=== PATIENT | male | born 1950 | race Caucasian/White ===

== ENCOUNTER 2020-04-07 16:47 | Emergency (ER) | payer MEDICARE, OTHER ==
[~2020-04-07] VITALS: Ht 185.4 cm; Wt 136.4 kg
[2020-04-07 17:25] VITALS: BP 138/74
--- NOTE | 2020-04-07 17:45 | PHYS DOC ---
Past Medical History Past Medical History: Unknown Past Surgical History: Other Smoking Status: Heavy Tobacco Smoker Alcohol Use: None General Adult EDM: Chief Complaint: CONSTIPATION HPI: HPI: Patient is a 69 year old male with a history of chronic constipation who presents the ED today complaining of constipation for 2 weeks. Patient denies any nausea or vomiting. He states he normally comes to the emergency room and they do an enema which relieves his symptoms. He states he is not able to do his own enema at home because he cannot reach his right rectum. Review of Systems: Review of Systems: Constitutional: Denies fever or chills. [] Eyes: Denies change in visual acuity. [] HENT: Denies nasal congestion or sore throat. [] Respiratory: Denies cough or shortness of breath. [] Cardiovascular: Denies chest pain or edema. [] GI: Reports constipation. Denies abdominal pain, nausea, vomiting, bloody stools or diarrhea. [] : Denies dysuria. [] Musculoskeletal: Denies back pain or joint pain. [] Integument: Denies rash. [] Neurologic: Denies headache, focal weakness or sensory changes. [] ] Psychiatric: Denies depression or anxiety. [] Heart Score: Risk Factors: Risk Factors: DM, Current or recent (<one month) smoker, HTN, HLP, family history of CAD, obesity. Risk Scores: Score 0 - 3: 2.5% MACE over next 6 weeks - Discharge Home Score 4 - 6: 20.3% MACE over next 6 weeks - Admit for Clinical Observation Score 7 - 10: 72.7% MACE over next 6 weeks - Early Invasive Strategies Allergies: Allergies: Allergies Coded Allergies Type Severity Reaction Last Updated Verified Penicillins Allergy Unknown 04/07/20 Yes egg Allergy Unknown 04/07/20 Yes lansoprazole Allergy Unknown 04/07/20 Yes tuberculin,PPD,multi-puncture Allergy Unknown 04/07/20 Yes Physical Exam: PE: Constitutional: Well developed, well nourished, no acute distress, non-toxic appearance. [] HENT: Normocephalic, atraumatic, bilateral external ears normal, oropharynx moist, no oral exudates, nose normal. [] Eyes: PERRLA, EOMI, conjunctiva normal, no discharge. [] Neck: Normal range of motion, no tenderness, supple, no stridor. [] Cardiovascular:Heart rate regular rhythm, no murmur [] Lungs & Thorax: Bilateral breath sounds clear to auscultation [] Abdomen: Bowel sounds normal, soft, no tenderness, no masses, no pulsatile masses. [] Skin: Warm, dry, no erythema, no rash. [] Back: No tenderness, no CVA tenderness. [] Extremities: No tenderness, no cyanosis, no clubbing, ROM intact, no edema. [] Neurologic: Alert and oriented X 3, normal motor function, normal sensory function, no focal deficits noted. [] Psychologic: Affect normal, judgement normal, mood normal. [] Current Patient Data: Vital Signs: Vital Signs Date Time Temp Pulse Resp B/P (MAP) Pulse Ox O2 Delivery O2 Flow Rate FiO2 04/07/20 17:25 99.3 20 138/74 (95) 97 Room Air 99.3 EKG: EKG: [] Radiology/Procedures: Radiology/Procedures: [] Course & Med Decision Making: Course & Med Decision Making Pertinent Labs and Imaging studies reviewed. (See chart for details) This is a 69-year-old male patient presenting to the ED today with chronic constipation. Is requesting an enema. Milk of molasses enema was performed successfully. Discharge to home. Provided return precautions. Dragon Disclaimer: Kiko Disclaimer: This electronic medical record was generated, in whole or in part, using a voice recognition dictation system. Departure Departure Impression: Primary Impression: Constipation Qualified Codes: K59.00 - Constipation, unspecified Disposition: HOME, SELF-CARE Condition: STABLE Referrals: TAPAN HIGUERA MD (PCP) follow up in 1-2 weeks Patient Instructions: Constipation, Adult Additional Instructions: You were seen for chronic constipation. Consider taking [id number] MiraLAX as well as a stool softener every day to prevent constipation. Consider taking mag citrate when you are constipated. Follow-up with your doctor in 1 to 2 weeks Justicifation of Admission Dx: Justifications for Admission: Justification of Admission Dx: N/A FARRUKH SANTOS APRN Apr 07, 2020 17:45
== END 2020-04-07 19:25 | disposition home or self-care (01) ==
LOC: ER 16:47
DX: K59.00 Constipation, unspecified (principal); Z72.0 Tobacco use; Z88.0 Allergy status to penicillin; Z91.012 Allergy to eggs; Z88.8 Allergy status to other drugs, medicaments and biological substances
CPT/HCPCS: 99284

== ENCOUNTER 2020-04-29 09:54 | Emergency (ER) | payer MEDICARE, OTHER ==
[~2020-04-29] VITALS: Ht 185.4 cm; Wt 136.0 kg
[2020-04-29 10:00] VITALS: BP 166/73
--- NOTE | 2020-04-29 10:56 | RAD ---
HUMERUS LEFT DATE: 04/29/2020 10:09 AM INDICATION: fall, pain COMPARISON: None. FINDINGS: Bones: There is no evidence of acute fracture or dislocation. Joints: The joint spaces are normal. Miscellaneous: None. IMPRESSION: No evidence of acute fracture. Electronically signed by: Reginaldo Modi MD (04/29/2020 10:53 AM) [id number]
[2020-04-29] MEDS ORDERED: CYCL10TA2 PO (11:33)
--- NOTE | 2020-04-29 11:33 | PHYS DOC ---
Past Medical History Past Medical History: Other Additional Past Medical Histor: "I take medication for pain" Past Surgical History: Appendectomy, Cholecystectomy, Tonsillectomy Smoking Status: Heavy Tobacco Smoker Alcohol Use: None General Adult EDM: Chief Complaint: UPPER EXTREMITY PAIN HPI: HPI: 69-year-old male past medical history of tobacco dependence, chronic knee pain and CAD with last stent placed in 2004, on no anticoagulants, presents the ED with complaints of left arm pain that occurred 3 weeks ago after patient fell. Patient states he was going down a ramp when he lost his balance and fell over his walker, did not hit his head or lose consciousness. Complains of sharp left distal arm pain that moves up to his left shoulder. Patient reported to triage he was weak but denies this on my exam and on nursing exam. C/o neck pain to the nurse but denies any neck pain on my exam. Patient reports he takes OxyContin 30 mg 5 times a day for his knee pain. Came to the ED because he thought his left arm pain would be resolved by now. No h/o underlying kidney disease. ROS: Denies associated headache, neck stiffness, midline neck pain, radiculopathy, sensorimotor deficits, neurologic deficits, saddle anesthesia, urine or bowel retention or incontinence, diaphoresis, sore throat, cough, hemoptysis, leg swelling, chest pain pressure or tightness, dyspnea, joint swelling or rash. Review of Systems: Review of Systems: Constitutional: Denies fever or chills. [] Eyes: Denies change in visual acuity. [] HENT: Denies nasal congestion or sore throat. [] Respiratory: Denies cough or shortness of breath. [] Cardiovascular: Denies chest pain or edema. [] GI: Denies abdominal pain, nausea, vomiting, bloody stools or diarrhea. [] : Denies dysuria. [] Musculoskeletal: Denies back pain or joint pain. [] Integument: Denies rash. [] Neurologic: Denies headache, focal weakness or sensory changes. [] Endocrine: Denies polyuria or polydipsia. [] Lymphatic: Denies swollen glands. [] Psychiatric: Denies depression or anxiety. [] Heart Score: Risk Factors: Risk Factors: DM, Current or recent (<one month) smoker, HTN, HLP, family history of CAD, obesity. Risk Scores: Score 0 - 3: 2.5% MACE over next 6 weeks - Discharge Home Score 4 - 6: 20.3% MACE over next 6 weeks - Admit for Clinical Observation Score 7 - 10: 72.7% MACE over next 6 weeks - Early Invasive Strategies Allergies: Allergies: Allergies Coded Allergies Type Severity Reaction Last Updated Verified Penicillins Allergy Unknown 04/07/20 Yes egg Allergy Unknown 04/07/20 Yes lansoprazole Allergy Unknown 04/07/20 Yes tuberculin,PPD,multi-puncture Allergy Unknown 04/07/20 Yes Physical Exam: PE: Constitutional: Well developed, well nourished, no acute distress, non-toxic appearance. [] obese/rich skin HENT: Normocephalic, atraumatic, no signs of head trauma Eyes: EOMI, conjunctiva normal, no discharge. [] Neck: Normal range of motion, no tenderness, supple, no stridor. [] Cardiovascular:Heart rate regular rhythm, no murmur [] Lungs & Thorax: Bilateral breath sounds clear to auscultation [] Abdomen: Bowel sounds normal, soft, no tenderness, no masses, no pulsatile masses. [] Skin: Warm, dry, no erythema, no rash. [] Back: No tenderness, no CVA tenderness. [] Extremities: No tenderness, no cyanosis, no clubbing, ROM intact-moves LUE/shoulder/wrist/elbow joint w/o any distress or pain, no edema, no abrasions/bruising to LUE Neurologic: Alert and oriented X 3, normal motor function, normal sensory function, no focal deficits noted. [] Psychologic: Affect normal, judgement normal, mood normal. [] Current Patient Data: Vital Signs: Vital Signs Date Time Temp Pulse Resp B/P (MAP) Pulse Ox O2 Delivery O2 Flow Rate FiO2 04/29/20 10:00 98.4 88 15 166/73 (104) 94 Room Air 98.4 EKG: EKG: Sinus rhythm at 76 bpm, left axis deviation, normal intervals, T wave inversion lead III, no ST elevations or ST depressions Radiology/Procedures: Radiology/Procedures: [] IMAGING REPORT Signed PATIENT: OSMAR ASHLEY ACCOUNT: [id number] : 1950 LOCATION: ER AGE: 69 SEX: M EXAM STATUS: REG ER ORD. PHYSICIAN: TOMMIE SILVA DO REASON: fall PROCEDURE: HUMERUS LEFT HUMERUS LEFT DATE: 04/29/2020 10:09 AM INDICATION: fall, pain COMPARISON: None. FINDINGS: Bones: There is no evidence of acute fracture or dislocation. Joints: The joint spaces are normal. Miscellaneous: None. IMPRESSION: No evidence of acute fracture. Electronically signed by: Jaems Modi MD (04/29/2020 10:53 AM) [id number] DICTATED and SIGNED BY: JAMES MODI MD DATE: 04/29/20 1053 Course & Med Decision Making: Course & Med Decision Making Pertinent Labs and Imaging studies reviewed. (See chart for details) Concern for traumatic left humerus and shoulder pain for the past 3 weeks. Patient with normal range of motion on physical exam. X-ray with no acute process. Nexus C-spine criteria are negative: There is no post midline tenderness, the patient is not intoxicated, there is a normal level of alertness, there are no focal neurologic deficits and there are no distracting injuries. Will treat conservatively with rice, muscle relaxers and NSAIDs. Atypical chest pain considered-ekg with no SILVIO and pt states "this isn't a heart attack for 3 weeks, I know what that feels like and this isn't it." RN familiar with pt - required enema for constipation recently. Pt in no distress. Encouraged urgent outpatient follow-up with PMD and Ortho. Life-threatening processes were considered but are low suspicion at this time, given history and physical exam. Pt was educated on all prescription medications and adverse effects. All patient's questions were answered and pt was stable at time of discharge. Differential includes intracranial hemorrhage, diffuse axonal injury, spinal cord syndrome, unstable cervical fracture or SCIWORA, fractures or joint dislocations, neurovascular injuries, organ injury laceration, pneumothorax, pneumoperitoneum, pericardial tamponade, unstable pelvic fracture, compartment syndrome, flail chest or respiratory distress, burn injury or asphyxiation, atypical chest pain/stemi/nstemi, aortic disease I spoken with the patient and her caregivers. I explained the patient's condition, diagnoses and treatment plan based on the information available to me at this time. I have answered the patient and her caregiver's questions and addressed any concerns. The patient and her caregivers have a good und erstanding of patient's diagnosis, condition and treatment plan as can be expected at this point. Vital signs have been stable. Patient's condition is stable and appropriate for discharge from the emergency department. Patient will pursue further outpatient evaluation with primary care physician or other designated or consulting physician as outlined in the discharge instructions. The patient and/or caregivers are agreeable to this plan of care and follow-up instructions have been explained in detail. The patient and/or caregivers have received these instructions in written form and have expressed an understanding of the discharge instructions. The patient and/or caregivers are aware that any significant change of condition or worsening of symptoms sh ould prompt immediate return to this or the closest emergency department or call to 911. Shopography Disclaimer: DragciValue Disclaimer: This electronic medical record was generated, in whole or in part, using a voice recognition dictation system. Departure Departure Impression: Primary Impression: Left arm pain Additional Impression: Fall Disposition: 01 HOME, SELF-CARE Condition: STABLE Referrals: TAPAN HIGUERA MD (PCP) Patient Instructions: Fall Prevention and Home Safety, Musculoskeletal Pain Scripts Cyclobenzaprine Hcl (CYCLOBENZAPRINE HCL) 10 Mg Tablet 10 TAB PO TID, #21 TAB Prov: TOMMIE SILVA DO 04/29/20 Justicifation of Admission Dx: Justifications for Admission: Justification of Admission Dx: N/A TOMMIE SILVA DO Apr 29, 2020 11:33
--- NOTE | 2020-04-30 11:22 | EKG ---
[facility] [address] [place] [address] Test Date: 2020-04-29 Test Time: 10:58:03 Pat Name: OSMAR ASHLEY Department: Room: Gender: M Cheese Tester: : 1950 Requested By: TOMMIE SILVA Order Number: [id number] Reading MD: Measurements Intervals [place] Rate: 76 P: 43 [place]: 178 QRS: -39 QRSD: 74 T: -6 QT: 384 QTc: 431 Interpretive Statements SINUS RHYTHM ABNORMAL LEFT AXIS DEVIATION LOW LIMB LEAD VOLTAGE QRS(T) CONTOUR ABNORMALITY CONSISTENT WITH INFERIOR INFARCT AGE UNDETERMINED ABNORMAL ECG RI6.02 No previous ECG available for comparison
== END 2020-04-29 11:40 | disposition home or self-care (01) ==
LOC: ER 09:54
DX: G89.11 Acute pain due to trauma (principal); M79.602 Pain in left arm; R07.89 Other chest pain; M25.512 Pain in left shoulder; F10.10 Alcohol abuse, uncomplicated; G89.29 Other chronic pain; M54.2 Cervicalgia; I25.10 Atherosclerotic heart disease of native coronary artery without angina pectoris; Z90.49 Acquired absence of other specified parts of digestive tract; Z90.89 Acquired absence of other organs; Z88.0 Allergy status to penicillin; Z91.012 Allergy to eggs; Z88.8 Allergy status to other drugs, medicaments and biological substances; W18.39XA Other fall on same level, initial encounter; Y93.9 Activity, unspecified; Y92.89 Other specified places as the place of occurrence of the external cause; Y99.8 Other external cause status
CPT/HCPCS: 73060; 93005; 99284

== ENCOUNTER 2020-06-10 21:26 | Emergency (ER) | payer MEDICARE, OTHER ==
[~2020-06-10] VITALS: Ht 185.4 cm; Wt 127.3 kg
[~2020-06-10 21:26] MED LIST: CYCL10TA2 PO
[2020-06-10 21:30] VITALS: BP 159/72
[2020-06-10 21:57] LABS: BASO % 0 % (0-3); EOS # 0.4 x10^3/uL (0.0-0.7); EOS % 6 % (0-3); HEMATOCRIT 46.4 % (39.0-53.0); HEMOGLOBIN 15.9 g/dL (13.0-17.5); LYMPH # 1.8 x10^3/uL (1.0-4.8); LYMPH % 25 % (24-48); MEAN CORPUSCULAR HEMOGLOBIN 33 pg (25-35); MEAN CORPUSCULAR HGB CONC 34 g/dL (31-37); MEAN CORPUSCULAR VOLUME 97 fL (79-100); MONO # 0.7 x10^3/uL (0.0-1.1); MONO % 10 % (0-9); NEUT # 4.4 x10^3/uL (1.8-7.7); NEUT % 60 % (31-73); PLATELET COUNT 144 x10^3/uL (140-400); RED BLOOD COUNT 4.79 x10^6/uL (4.30-5.70); RED CELL DISTRIBUTION WIDTH 14.5 % (11.5-14.5); WHITE BLOOD COUNT 7.4 x10^3/uL (4.0-11.0)
--- NOTE | 2020-06-10 21:58 | PHYS DOC ---
Past Medical History Past Medical History: Other Additional Past Medical Histor: "I take medication for pain" (PAM BERRY APRN) Past Surgical History: Appendectomy, Cholecystectomy, Tonsillectomy (PAM BERRY APRN) Smoking Status: Heavy Tobacco Smoker Alcohol Use: None (PAM BERRY APRN) General Adult EDM: Chief Complaint: CONSTIPATION HPI: HPI: Patient is a 69 year old male who presents with states that he began having lower abdominal pain and cramps due to him not having a bowel movement for the last 7 days. Patient was here last on April 07 for the same problem. Patient rates his pain a 10 out of 10. Patient states at times he will take MiraLAX but does not do it often. He states that he cannot do an enema at home because he cannot reach his rectum. He states that he is here for an enema because that is what relieves his constipation. Patient has a history of ID, appendectomy, chol ecystectomy, tonsillectomy, COPD, stents, constipation, diabetes. (PAM BERRY DROP BOARD MAN) Review of Systems: Review of Systems: Constitutional: Denies fever or chills. [] Eyes: Denies change in visual acuity. [] HENT: Denies nasal congestion or sore throat. [] Respiratory: Denies cough or shortness of breath. [] Cardiovascular: Denies chest pain or edema. [] GI: + abdominal pain, denies nausea, vomiting, bloody stools or diarrhea. +Constipation[] : Denies dysuria. [] Musculoskeletal: Denies back pain or joint pain. [] Integument: Denies rash. [] Neurologic: Denies headache, focal weakness or sensory changes. [] Endocrine: Denies polyuria or polydipsia. [] Lymphatic: Denies swollen glands. [] Psychiatric: Denies depression or anxiety. [] (PAM BERRY APRN) Heart Score: Risk Factors: Risk Factors: DM, Current or recent (<one month) smoker, HTN, HLP, family history of CAD, obesity. Risk Scores: Score 0 - 3: 2.5% MACE over next 6 weeks - Discharge Home Score 4 - 6: 20.3% MACE over next 6 weeks - Admit for Clinical Observation Score 7 - 10: 72.7% MACE over next 6 weeks - Early Invasive Strategies (PAM BERRY APRN) Current Medications: Current Medications Medications (Trade) Dose Ordered Sig/Adalberto Start Time Stop Time Status Last Admin Dose Admin Docusate Sodium (Enemeez) 283 mg 1X ONCE 06/10/20 22:00 06/10/20 22:01 (PAM BERRY APRN) Allergies: Allergies: Allergies Coded Allergies Type Severity Reaction Last Updated Verified Penicillins Allergy Unknown 04/07/20 Yes egg Allergy Unknown 04/07/20 Yes lansoprazole Allergy Unknown 04/07/20 Yes tuberculin,PPD,multi-puncture Allergy Unknown 04/07/20 Yes (PAM BERRY APRN) Physical Exam: PE: Constitutional: Well developed, well nourished, no acute distress, non-toxic appearance. [] HENT: Normocephalic, atraumatic, bilateral external ears normal, oropharynx moist, no oral exudates, nose normal. [] Eyes: PERRLA, EOMI, conjunctiva normal, no discharge. [] Neck: Normal range of motion, no tenderness, supple, no stridor. [] Cardiovascular:Heart rate regular rhythm, no murmur [] Lungs & Thorax: Bilateral breath sounds clear to auscultation [] Abdomen: Bowel sounds normal, soft, no tenderness, no masses, no pulsatile masses. [] Skin: Warm, dry, no erythema, no rash. [] Back: No tenderness, no CVA tenderness. [] Extremities: No tenderness, no cyanosis, no clubbing, ROM intact, no edema. [] Neurologic: Alert and oriented X 3, normal motor function, normal sensory function, no focal deficits noted. [] Psychologic: Affect normal, judgement normal, mood normal. Normal physical exam [] (PAM BERRY APRN) EKG: EKG: [] (PAM BERRY APRN) Radiology/Procedures: Radiology/Procedures: [] Impression: [facility] [address] [place] [address] IMAGING REPORT Signed PATIENT: OSMAR ASHLEY ACCOUNT: [id number] : 1950 LOCATION: ER AGE: 69 SEX: M EXAM STATUS: PRE ER ORD. PHYSICIAN: PAM BERRY APRN REASON: CONSTIPATION PROCEDURE: ACUTE ABDOMEN SERIES Exam: Acute abdominal series INDICATION: Constipation TECHNIQUE: Frontal view of the chest with upright and supine views of the abdomen Comparisons: None FINDINGS: Heart is enlarged. Pulmonary vessels are within normal limits. The lung and pleural spaces are clear. Air and stool are noted throughout the colon to level the rectum in a nonobstructive bowel gas pattern. Moderate amount stool noted throughout the colon. No suspicious masses or calcifications. Visualized osseous structures are unremarkable. IMPRESSION: 1. No acute cardiopulmonary process. 2. Nonobstructive bowel gas pattern. Moderate stool burden. Electronically signed by: Milton Perrin MD (06/10/2020 10:13 PM) [id number] DICTATED and SIGNED BY: MILTON PERRIN MD DATE: 06/10/202212 (PAM BERRY APRN) Course & Med Decision Making: Course & Med Decision Making Pertinent Labs and Imaging studies reviewed. (See chart for details) See HPI. Speaks in full complete sentences. Ambulatory with a steady gait. Skin pink warm and dry. Vital signs within normal limits. Abdomen is soft and nontender. Patient denies chest pain, shortness of air, diarrhea, fever, cough, dysuria symptoms, headache, dizziness, vision changes, focal weakness. Patient is given a Colace enema we will in the ED. Acute abdominal series showed no bowel obstruction. Blood work unremarkable. Stool could not be reached with rectal vault check. After enema given patient had a large bowel movement. Patient is discharged home. [] (PAM BERRY APRN) Dragon Disclaimer: Dragon Disclaimer: This electronic medical record was generated, in whole or in part, using a voice recognition dictation system. (PAM BERRY APRN) Departure Departure Impression: Primary Impression: Constipation Qualified Codes: K59.00 - Constipation, unspecified Disposition: 01 DC HOME SELF CARE/HOMELESS Condition: STABLE Referrals: TAPAN HIGUERA MD (PCP) Patient Instructions: Constipation, Adult Additional Instructions: Start taking MiraLAX every day. Drink plenty of fluids. Follow-up with your primary care provider. Attending Signature Attending Signature I have reviewed the PA/PERSONAL BANKER's note and plan of care. I was available for consul tation as needed during the patient's visit in the emergency department. I agree with the clinical impression, plan, and disposition. (CATALINA ORTIZ DO) PAM BERRY APRN Jun 10, 2020 21:58 CATALINA ORTIZ DO Jun 13, 2020 06:58
[2020-06-10] MEDS ORDERED: DOCUSATE SODIUM 283 MG/5 ML ENEMA. PR ONE (22:00)
[2020-06-10 22:14] LABS: CALCIUM 8.2 mg/dL (8.5-10.1); GFR 73.7; POTASSIUM 3.5 mmol/L (3.5-5.1)
--- NOTE | 2020-06-10 22:16 | RAD ---
Exam: Acute abdominal series INDICATION: Constipation TECHNIQUE: Frontal view of the chest with upright and supine views of the abdomen Comparisons: None FINDINGS: Heart is enlarged. Pulmonary vessels are within normal limits. The lung and pleural spaces are clear. Air and stool are noted throughout the colon to level the rectum in a nonobstructive bowel gas pattern. Moderate amount stool noted throughout the colon. No suspicious masses or calcifications. Visualized osseous structures are unremarkable. IMPRESSION: 1. No acute cardiopulmonary process. 2. Nonobstructive bowel gas pattern. Moderate stool burden. Electronically signed by: Milton Guerrero MD (06/10/2020 10:13 PM) [id number]
[2020-06-10 22:20] LABS: ALBUMIN 2.4 g/dL (3.4-5.0); ALBUMIN/GLOBULIN RATIO 0.5 (1.0-1.7); TOTAL BILIRUBIN 0.9 mg/dL (0.2-1.0)
== END 2020-06-10 23:36 | disposition home or self-care (01) ==
LOC: ER 21:26
DX: K59.00 Constipation, unspecified (principal); F17.290 Nicotine dependence, other tobacco product, uncomplicated; Z90.89 Acquired absence of other organs; Z90.49 Acquired absence of other specified parts of digestive tract; I25.2 Old myocardial infarction; Z88.0 Allergy status to penicillin; Z88.8 Allergy status to other drugs, medicaments and biological substances; Z91.012 Allergy to eggs; Z88.7 Allergy status to serum and vaccine
CPT/HCPCS: 36415; 74022; 80053; 83690; 84484; 85025; 99284

== ENCOUNTER 2020-06-16 18:11 | Emergency (ER) | payer MEDICARE, OTHER | END 2020-06-16 19:28 | disposition left against medical advice (07) | LOC: ER 18:11 | DX: K59.00 Constipation, unspecified (principal); Z53.21 Procedure and treatment not carried out due to patient leaving prior to being seen by health care provider ==

== ENCOUNTER 2020-08-16 15:17 | Emergency (ER) | payer MEDICARE, OTHER ==
[2020-06-20 15:00] VITALS: BP 124/56
[~2020-08-16 15:17] MED LIST changes: +CEFD300C PO; +POLY17PO28 PO
== END 2020-08-16 16:36 | disposition left against medical advice (07) ==
LOC: ER 15:17
DX: K59.00 Constipation, unspecified (principal); Z53.21 Procedure and treatment not carried out due to patient leaving prior to being seen by health care provider

== ENCOUNTER 2020-08-30 21:50 | Emergency (ER) | payer MEDICARE, OTHER ==
[2020-06-20 15:00] VITALS: BP 124/56
[~2020-08-30] VITALS: Ht 185.4 cm; Wt 136.4 kg
== END 2020-08-30 22:30 | disposition left against medical advice (07) ==
LOC: ER 21:50
DX: R10.9 Unspecified abdominal pain (principal); Z53.21 Procedure and treatment not carried out due to patient leaving prior to being seen by health care provider

== ENCOUNTER 2020-10-31 11:24 | Emergency (ER) | payer MEDICARE, OTHER ==
[~2020-10-31] VITALS: Ht 185.4 cm; Wt 136.0 kg
[~2020-10-31 11:24] MED LIST changes: -POLY17PO28 PO; +POLY17PO52 PO
[2020-10-31] MEDS ORDERED: BISACODYL 5 MG TABLET.DR. PO STA (11:49)
[2020-10-31] MEDS ORDERED: MAGNESIUM CITRATE 296 ML SOLUTION. PO ONE (12:00)
[2020-10-31] MEDS ORDERED: SODIUM PHOSPHATES 19/7GM 133 ML ENEMA. PR ONE (12:00)
[2020-10-31 12:02] VITALS: BP 143/66
--- NOTE | 2020-10-31 12:12 | PHYS DOC ---
Past Medical History Past Medical History: Arthritis, Constipation, COPD, Hypertension, [place], Other Additional Past Medical Histor: "I take medication for pain" Past Surgical History: Appendectomy, Cholecystectomy, Tonsillectomy Additional Past Surgical Histo: HEART STENTS Smoking Status: Current Every Day Smoker Alcohol Use: None General Adult EDM: Chief Complaint: CONTISPATION HPI: HPI: Patient is a 69 year old male with history of CA, hypertension, arthritis on oxycodone daily for pain, COPD among other illnesses presenting to the ED today complaining of constipation for 1 week. Patient states this is a chronic condition for him due to oxycodone. He states he did not try anything [id number]. Is complaining of generalized bloating type abdominal pain, denies anything specifically exacerbating or relieving his pain. He is requesting an enema stating that is the only thing that works for him Review of Systems: Review of Systems: Constitutional: Denies fever or chills. [] Eyes: Denies change in visual acuity. [] HENT: Denies nasal congestion or sore throat. [] Respiratory: Denies cough or shortness of breath. [] Cardiovascular: Denies chest pain or edema. [] GI: Reports constipation, denies nausea, vomiting, bloody stools or diarrhea. [] : Denies dysuria. [] Musculoskeletal: Denies back pain or joint pain. [] Integument: Denies rash. [] Neurologic: Denies headache, focal weakness or sensory changes. [] Psychiatric: Denies depression or anxiety. [] Heart Score: Risk Factors: Risk Factors: DM, Current or recent (<one month) smoker, HTN, HLP, family history of CAD, obesity. Risk Scores: Score 0 - 3: 2.5% MACE over next 6 weeks - Discharge Home Score 4 - 6: 20.3% MACE over next 6 weeks - Admit for Clinical Observation Score 7 - 10: 72.7% MACE over next 6 weeks - Early Invasive Strategies Current Medications: Current Medications Medications (Trade) Dose Ordered Sig/Adalberto Start Time Stop Time Status Last Admin Dose Admin Bisacodyl (Dulcolax Tab) 10 mg 1X STAT 10/31/20 11:49 10/31/20 11:55 DC Magnesium Citrate (Citroma) 296 ml 1X ONCE 10/31/20 12:00 10/31/20 12:01 DC Sodium Monofluorophosphate (Fleet Adult) 133 ml 1X ONCE 10/31/20 12:00 10/31/20 12:01 DC Allergies: Allergies: Allergies Coded Allergies Type Severity Reaction Last Updated Verified Penicillins Allergy Unknown 04/07/20 Yes egg Allergy Unknown 04/07/20 Yes lansoprazole Allergy Unknown 04/07/20 Yes tuberculin,PPD,multi-puncture Allergy Unknown 04/07/20 Yes Physical Exam: PE: Constitutional: Well developed, well nourished, no acute distress, non-toxic appearance. [] HENT: Normocephalic, atraumatic, bilateral external ears normal, oropharynx moist, no oral exudates, nose normal. [] Eyes: PERRLA, EOMI, conjunctiva normal, no discharge. [] Neck: Normal range of motion, no tenderness, supple, no stridor. [] Cardiovascular:Heart rate regular rhythm, no murmur [] Lungs & Thorax: Bilateral breath sounds clear to auscultation [] Abdomen: Old healed surgical incision noted to the right vertical lower abdomen bowel sounds normal, soft, no tenderness, no masses, no pulsatile masses. [] Skin: Warm, dry, no erythema, no rash. [] Back: No tenderness, no CVA tenderness. [] Extremities: No tenderness, no cyanosis, no clubbing, ROM intact, no edema. [] Neurologic: Alert and oriented X 3, normal motor function, normal sensory function, no focal deficits noted. [] Psychologic: Affect normal, judgement normal, mood normal. [] Current Patient Data: Vital Signs: Vital Signs Date Time Temp Pulse Resp B/P (MAP) Pulse Ox O2 Delivery O2 Flow Rate FiO2 10/31/20 11:30 98.3 86 16 159/74 (102) 97 Room Air 98.3 EKG: EKG: [] Radiology/Procedures: Radiology/Procedures: [] Course & Med Decision Making: Course & Med Decision Making Pertinent Labs and Imaging studies reviewed. (See chart for details) This is a 69-year-old male patient presented to the ED today with constipation and requesting an enema. He is on oxycodone. Has not tried anything over-the-c ounter for constipation. Given mag citrate, Dulcolax and Fleet enema. Discharge to home with education on constipation management especially on oxycodone. Kiko Disclaimer: Kiko Disclaimer: This electronic medical record was generated, in whole or in part, using a voice recognition dictation system. Departure Departure Impression: Primary Impression: Constipation Qualified Codes: K59.03 - Drug induced constipation Disposition: 01 DC HOME SELF CARE/HOMELESS Condition: STABLE Referrals: TAPAN HIGUERA MD (PCP) follow up with your doctor in 1 week Patient Instructions: Constipation, Adult Additional Instructions: You were evaluated in the emergency room for constipation. Please consider taking [id number] bowel preparation medicines like MiraLAX and docusate sodium daily. Take magnesium citrate anytime you are constipated. You can perform an [id number] Fleet enema or use suppositories when you are constipated FARRUKH SANTOS APRN Oct 31, 2020 12:12
== END 2020-10-31 12:40 | disposition home or self-care (01) ==
LOC: ER 11:24
DX: K59.03 Drug induced constipation (principal); R10.84 Generalized abdominal pain; M19.90 Unspecified osteoarthritis, unspecified site; J44.9 Chronic obstructive pulmonary disease, unspecified; I10 Essential (primary) hypertension; I25.2 Old myocardial infarction; F17.200 Nicotine dependence, unspecified, uncomplicated; Z90.49 Acquired absence of other specified parts of digestive tract; Z90.89 Acquired absence of other organs; Z98.890 Other specified postprocedural states
CPT/HCPCS: 99284

== ENCOUNTER 2020-11-26 22:52 | Emergency (ER) | payer MEDICARE, OTHER | END 2020-11-26 23:15 | disposition left against medical advice (07) | LOC: ER 22:52 | DX: K59.00 Constipation, unspecified (principal); Z53.21 Procedure and treatment not carried out due to patient leaving prior to being seen by health care provider ==

== ENCOUNTER 2021-02-26 04:34 | Emergency (ER) | payer MEDICARE, OTHER ==
[~2021-02-26] VITALS: Ht 182.9 cm; Wt 135.0 kg
[2021-02-26] MEDS ORDERED: SODIUM PHOSPHATES 19/7GM 133 ML ENEMA. PR ONE (05:00)
[2021-02-26] MEDS ORDERED: MAGNESIUM CITRATE 296 ML SOLUTION. PO ONE (05:00)
[2021-02-26 05:15] VITALS: BP 151/71
--- NOTE | 2021-02-26 05:16 | RAD ---
XR ABDOMEN COMP ACUTE INDICATION: constipation COMPARISON STUDY: 06/10/2020. FINDINGS: Lungs: Elevation of the right hemidiaphragm. No pulmonary mass or consolidation. The tracheobronchial tree and hilar structures are normal. Pleura: No pleural effusion or pneumothorax. Heart and Mediastinum: Cardiomegaly. The great vessels of the thorax are normal. Abdomen: Nonobstructive bowel gas pattern. No free air. Large colonic stool burden. IMPRESSION: Large colonic stool burden, consistent with patient's history of constipation. Electronically signed by: Reginaldo Modi MD (02/26/2021 5:13 AM) [facility]
[2021-02-26] MEDS ORDERED: BISA10SU55 RC (05:45)
--- NOTE | 2021-02-26 05:46 | PHYS DOC ---
Past Medical History Past Medical History: Arthritis, Constipation, COPD, Hypertension, [place], Other Additional Past Medical Histor: "I take medication for pain" Past Surgical History: Appendectomy, Cholecystectomy, Tonsillectomy Additional Past Surgical Histo: HEART STENTS Smoking Status: Current Every Day Smoker Alcohol Use: None General Adult EDM: Chief Complaint: CONSTIPATION HPI: HPI: Patient is a 69 year old male who presented to ER due to constipation problem. Patient had chronic bilateral knee pain, he is taking oxycodone daily for pain, he also has COPD among other illnesses. Patient said he had not had a bowel movement for a week, patient states this is a chronic condition for him due to oxycodone. He states he did not try anything [id number]. He is is complaining of generalized bloating type abdominal pain, denies anything specifically exacerbating or relieving his pain. He is requesting an enema stating that is the only thing that works for him. Patient denies any nausea vomiting Review of Systems: Review of Systems: Constitutional: Denies fever or chills. [] Eyes: Denies change in visual acuity. [] HENT: Denies nasal congestion or sore throat. [] Respiratory: Denies cough or shortness of breath. [] Cardiovascular: Denies chest pain or edema. [] GI: Denies abdominal pain, nausea, vomiting, bloody stools or diarrhea. Positive for constipation : Denies dysuria. [] Musculoskeletal: Denies back pain or joint pain. [] Integument: Denies rash. [] Neurologic: Denies headache, focal weakness or sensory changes. [] Endocrine: Denies polyuria or polydipsia. [] Lymphatic: Denies swollen glands. [] Psychiatric: Denies depression or anxiety. [] Heart Score: C/O Chest Pain: N/A Risk Factors: Risk Factors: DM, Current or recent (<one month) smoker, HTN, HLP, family history of CAD, obesity. Risk Scores: Score 0 - 3: 2.5% MACE over next 6 weeks - Discharge Home Score 4 - 6: 20.3% MACE over next 6 weeks - Admit for Clinical Observation Score 7 - 10: 72.7% MACE over next 6 weeks - Early Invasive Strategies Current Medications: Current Medications Medications (Trade) Dose Ordered Sig/Adalberto Start Time Stop Time Status Last Admin Dose Admin Magnesium Citrate (Citroma) 296 ml 1X ONCE 02/26/21 05:00 02/26/21 05:01 DC 02/26/21 05:19 296 ML Sodium Monofluorophosphate (Fleet Adult) 133 ml 1X ONCE 02/26/21 05:00 02/26/21 05:01 DC 02/26/21 05:19 133 ML Allergies: Allergies: Allergies Coded Allergies Type Severity Reaction Last Updated Verified Penicillins Allergy Unknown 04/07/20 Yes egg Allergy Unknown 04/07/20 Yes lansoprazole Allergy Unknown 04/07/20 Yes tuberculin,PPD,multi-puncture Allergy Unknown 04/07/20 Yes Physical Exam: PE: Constitutional: Well developed, well nourished, no acute distress, non-toxic appearance. [] HENT: Normocephalic, atraumatic, bilateral external ears normal, oropharynx moist, no oral exudates, nose normal. [] Eyes: PERRLA, EOMI, conjunctiva normal, no discharge. [] Neck: Normal range of motion, no tenderness, supple, no stridor. [] Cardiovascular:Heart rate regular rhythm, no murmur [] Lungs & Thorax: Bilateral breath sounds clear to auscultation [] Abdomen: Bowel sounds normal, soft, no tenderness, no masses, no pulsatile masses. [] Skin: Warm, dry, no erythema, no rash. [] Back: No tenderness, no CVA tenderness. [] Extremities: No tenderness, no cyanosis, mild pitting edema Neurologic: Alert and oriented X 3, normal motor function, normal sensory function, no focal deficits noted. [] Psychologic: Affect normal, judgement normal, mood normal. [] EKG: EKG: [] Radiology/Procedures: Radiology/Procedures: [][facility] [address] [place] [address] IMAGING REPORT Signed PATIENT: OSMAR ASHLEY ACCOUNT: [id number] : 1950 LOCATION: ER AGE: 70 SEX: M EXAM STATUS: PRE ER ORD. PHYSICIAN: JANET MURO DO REASON: constipation PROCEDURE: ACUTE ABDOMEN SERIES XR ABDOMEN COMP ACUTE INDICATION: constipation COMPARISON STUDY: 06/10/2020. FINDINGS: Lungs: Elevation of the right hemidiaphragm. No pulmonary mass or consolidation. The tracheobronchial tree and hilar structures are normal. Pleura: No pleural effusion or pneumothorax. Heart and Mediastinum: Cardiomegaly. The great vessels of the thorax are normal. Abdomen: Nonobstructive bowel gas pattern. No free air. Large colonic stool burden. IMPRESSION: Large colonic stool burden, consistent with patient's history of constipation. Electronically signed by: James Modi MD (02/26/2021 5:13 AM) [facility] DICTATED and SIGNED BY: JAMES MODI MD DATE: 02/26/21 [id number] Course & Med Decision Making: Course & Med Decision Making Pertinent Labs and Imaging studies reviewed. (See chart for details) Patient is a 70-year-old male who present to ER due to constipation problem. Patient was given a Fleet enema in the ER, he had a bowel movement. Patient also was given a bottle of magnesium citrate to take home. He was instructed follow-up with his family physician for reevaluation this week Dragon Disclaimer: Kiko Disclaimer: This electronic medical record was generated, in whole or in part, using a voice recognition dictation system. Departure Departure Impression: Primary Impression: Constipation Disposition: HOME / SELF CARE / HOMELESS Condition: IMPROVED Referrals: TAPAN HIGUERA MD (PCP) Follow-up with your doctor this week for reevaluation. Patient Instructions: Constipation, Adult Additional Instructions: Thank you for visiting our Emergency Department. We appreciate you trusting us with your care. If any additional problems come up don't hesitate to return to visit us. Please follow up with your primary care provider so they can plan additional care if needed and know about the problem that you had. If symptoms worsen come back to the Emergency Department. Any concerning symptoms that start such as chest pain, shortness of air, weakness or numbness on one side of the body, running high fevers or any other concerning symptoms return to the ER. Scripts Bisacodyl (DULCOLAX) 10 Mg Supp.rect 1 SUPP RC DAILY PRN for CONSTIPATION for 10 Days, #10 SUPP 0 Refills Prov: JANET MURO DO 02/26/21 JANET MURO DO Feb 26, 2021 05:46
== END 2021-02-26 07:22 | disposition home or self-care (01) ==
LOC: ER 04:34
DX: K59.00 Constipation, unspecified (principal); M25.561 Pain in right knee; M25.562 Pain in left knee; I10 Essential (primary) hypertension; J44.9 Chronic obstructive pulmonary disease, unspecified; I25.2 Old myocardial infarction; F17.200 Nicotine dependence, unspecified, uncomplicated; Z90.89 Acquired absence of other organs; Z90.49 Acquired absence of other specified parts of digestive tract; Z95.5 Presence of coronary angioplasty implant and graft; Z88.0 Allergy status to penicillin; Z91.012 Allergy to eggs; Z88.8 Allergy status to other drugs, medicaments and biological substances; Z88.7 Allergy status to serum and vaccine
CPT/HCPCS: 74022; 99284

== ENCOUNTER 2021-06-17 23:59 | Emergency (ER) | payer MEDICARE, OTHER ==
[~2021-06-17 23:59] MED LIST changes: +BISA10SU55 RC
== END 2021-06-18 00:36 | disposition left against medical advice (07) ==
LOC: ER 23:59
DX: K59.00 Constipation, unspecified (principal); Z53.21 Procedure and treatment not carried out due to patient leaving prior to being seen by health care provider

== ENCOUNTER 2021-07-22 19:57 | Emergency (ER) | payer MEDICARE, OTHER ==
[~2021-07-22] VITALS: Ht 185.4 cm; Wt 136.4 kg
[~2021-07-22 19:57] MED LIST changes: +CYCL10TA19 PO; -CYCL10TA2 PO
--- NOTE | 2021-07-22 20:25 | PHYS DOC ---
Past Medical History Past Medical History: Arthritis, Constipation, COPD, Hypertension, [place], Other Additional Past Medical Histor: "I take medication for pain" Past Surgical History: Appendectomy, Cholecystectomy, Tonsillectomy Additional Past Surgical Histo: HEART STENTS Smoking Status: Current Every Day Smoker Alcohol Use: None General Adult EDM: Chief Complaint: MECHANICAL FALL HPI: HPI: Patient is a 70 year old male who uses a motorized scooter to get around presents for evaluation after falling out of his scooter. Patient states 11 AM this morning he was scooting up his driveway when scooter tipped over. Patient states he fell to the ground and hit his head denies any loss of consciousness. Patient complains of lower lumbar and bilateral hip pain. On exam patient is alert and oriented x4. His only complaint is lower lumbar midline and paraspinal pain and tenderness of her bilateral hips. Uses mechanical scooter for ambulation. Decreased range of motion bilateral lower extremities due to chronic weakness and pain. Patient without any saddle anesthesia he denies any loss of bowel or bladder. Review of Systems: Review of Systems: Review of systems: Constitutional symptoms- No fever, no chills. Eyes- No Discharge, No Visual Loss Respiratory symptoms- No shortness of breath, No wheezing, No Dyspnea on Exertion Cardiovascular Systems; No chest pain, No Palpitations, No syncope Gastrointestinal symptoms: NO abdominal pain, no nausea, no vomiting or diarrhea. Genitourinary symptoms: No dysuria. Musculoskeletal symptoms: No back pain No extremity pain. Positive back pain positive bilateral hip pain NEUROLOGICAL Symptoms: No headache, no generalized weakness; No focal Weakness Skin: No rash. Heart Score: C/O Chest Pain: N/A Risk Factors: Risk Factors: DM, Current or recent (<one month) smoker, HTN, HLP, family histo ry of CAD, obesity. Risk Scores: Score 0 - 3: 2.5% MACE over next 6 weeks - Discharge Home Score 4 - 6: 20.3% MACE over next 6 weeks - Admit for Clinical Observation Score 7 - 10: 72.7% MACE over next 6 weeks - Early Invasive Strategies Allergies: Allergies: Allergies Coded Allergies Type Severity Reaction Last Updated Verified Penicillins Allergy Unknown 04/07/20 Yes egg Allergy Unknown 04/07/20 Yes lansoprazole Allergy Unknown 04/07/20 Yes tuberculin,PPD,multi-puncture Allergy Unknown 04/07/20 Yes Physical Exam: PE: General: alert, no acute distress. Skin: warm, dry and intact, no erythema, no rash. HENT: bilateral external ears normal, oropharynx moist, nose normal. Head:: Normocephalic, atraumatic. Neck: Trachea midline. Eyes: EOMI, Normal conjunctiva, No drainage CARDIOVASCULAR: Regular rate and rhythm RESPIRATORY: No respiratory distress Back: Midline tenderness L3-L4 no step-off deformity of the cervical thoracic or lumbar spine. Paraspinal tenderness L4-L5 MUSCULOSKELETAL: Full range of motion of bilateral upper and lower extremities. Decreased range of motion lower extremities due to chronic pain. GASTROINTESTINAL: Abdomen soft without rebound or guarding. NEUROLOGICAL: Alert and noted to person, place and time. No neurological deficits observed Psychiatric: Cooperative. Normal judgment Current Patient Data: Vital Signs: Vital Signs Date Time Temp Pulse Resp B/P (MAP) Pulse Ox O2 Delivery O2 Flow Rate FiO2 07/22/21 20:00 98.2 93 17 158/70 (99) 93 Room Air 98.2 EKG: EKG: [] Radiology/Procedures: Radiology/Procedures: [] Impression: IMPRESSION: BRAIN: No evidence of acute intracranial abnormality. L-SPINE: No evidence of acute osseous abnormality involving the lumbar spine. Multilevel degenerative findings as described. Incidental nonacute findings in the abdomen as described. Course & Med Decision Making: Course & Med Decision Making Pertinent Labs and Imaging studies reviewed. (See chart for details) [] Work-up consisted of radiologic imaging. Results reviewed and discussed with patient. No acute fractures visualized on radiologic imaging. Patient's pain was treated with fentanyl with improvement. Patient instructed to continue taking home pain medications and to follow-up with primary care physician as needed. Dragon Disclaimer: Dragon Disclaimer: This electronic medical record was generated, in whole or in part, using a voice recognition dictation system. Departure Departure Impression: Primary Impression: Fall Additional Impressions: Back pain Hip pain Disposition: HOME / SELF CARE / HOMELESS Condition: STABLE Referrals: TAPAN HIGUERA MD (PCP) Patient Instructions: Back Pain, Adult, Contusion, Fall Prevention and Home Safety DEBI RAYMUNDO DO Jul 22, 2021 20:25
--- NOTE | 2021-07-22 20:53 | RAD ---
EXAMINATION: XR PELVIS 1-2V CLINICAL HISTORY: BILATERAL HIP PAIN TECHNIQUE: XR PELVIS 1-2V COMPARISON: None FINDINGS/ IMPRESSION: Degenerative changes bilateral hips, incompletely evaluated. Pubic symphysis maintained. SI joints un remarkable on limited evaluation. Partially visualized lumbar degenerative changes. No evidence of ac suma fracture on limited evaluation. Of note, the sacrum is poorly evaluated due to imaging technique and overlying stool and bowel gas. Electronically signed by: Shiv Dalton DO (07/22/2021 8:50 PM) [facility]
[2021-07-22] MEDS ORDERED: fentaNYL PF VIAL 100 MCG/2 ML VIAL IVP ONE (21:30)
--- NOTE | 2021-07-22 21:35 | RAD ---
EXAMINATION: CT LUMBAR SPINE WO, CT HEAD/BRAIN WO CLINICAL HISTORY: Fall, head trauma, low back pain TECHNIQUE: Serial axial images without IV contrast were obtained from the vertex to the foramen magnum. CT of the lumbar spine without IV contrast. Spiral, high resolution axial images were obtained from t he thoracolumbar junction to the lumbosacral junction with sagittal and coronal planar reconstruction s. CT Dose Reduction Employed: One or more of the following individualized dose reduction techniques wer e utilized for this examination: 1. Automated exposure control 2. Adjustment of the mA and/or kV ac cording to patient size 3. Use of iterative reconstruction technique. COMPARISON: None FINDINGS: BRAIN: Acute Change: No evidence of an acute contusion or other acute parenchymal process. Hemorrhage: No evidence of acute intracranial hemorrhage. Mass Lesion/Mass Effect: No evidence of intracranial mass or extraaxial fluid collection. No signific ant mass effect. Chronic Change: Scattered patchy foci of hypoattenuation in the supratentorial white matter, nonspeci fic but likely represents mild microvascular ischemia. Atherosclerotic calcification of the intracran ial portion of the bilateral internal carotid arteries. Parenchyma: Mild generalized volume loss. Ventricles: Ventricular enlargement concordant with degree of parenchymal volume loss. Paranasal Sinuses and Skull Base: Mild secretions in the ethmoid and partially visualized maxillary s inuses. No evidence of acute calvarial fracture. L-SPINE: Alignment: Normal anatomic alignment. Osseous Structures: No evidence of acute fracture or spondylolisthesis. Degenerative Changes: Mild degenerative disc disease at L3-4 and to lesser extent L4-5. Moderate mult ilevel neural foraminal narrowing in the lower lumbar spine. No evidence of high-grade osseous spinal stenosis. Mild facet arthropathy. Paraspinal Soft Tissues: Paraspinal soft tissues unremarkable. Vascular calcifications. Small hypoden se lesions in the bilateral kidneys measuring up to 1.7 cm, incompletely evaluated but may represent cysts. Bilateral renal vascular calcifications with possible tiny nonobstructive right renal calculus . Prominent stool in the rectosigmoid colon. IMPRESSION: BRAIN: No evidence of acute intracranial abnormality. L-SPINE: No evidence of acute osseous abnormality involving the lumbar spine. Multilevel degenerative findings as described. Incidental nonacute findings in the abdomen as described. Electronically signed by: Shiv Dalton DO (07/22/2021 9:32 PM) [facility]
[2021-07-22 22:02] VITALS: BP 126/61
[2021-07-22] MEDS ORDERED: FENT1PAT17 TP (22:54)
== END 2021-07-22 22:05 | disposition home or self-care (01) ==
LOC: ER 19:57
DX: M54.50 Low back pain, unspecified (principal); M25.551 Pain in right hip; M25.552 Pain in left hip; G89.11 Acute pain due to trauma; J44.9 Chronic obstructive pulmonary disease, unspecified; I10 Essential (primary) hypertension; I25.2 Old myocardial infarction; F17.200 Nicotine dependence, unspecified, uncomplicated; Z90.89 Acquired absence of other organs; Z90.49 Acquired absence of other specified parts of digestive tract; Z95.5 Presence of coronary angioplasty implant and graft; Z88.0 Allergy status to penicillin; Z91.012 Allergy to eggs; Z88.8 Allergy status to other drugs, medicaments and biological substances; Z88.7 Allergy status to serum and vaccine; W18.39XA Other fall on same level, initial encounter; Y93.89 Activity, other specified; Y92.89 Other specified places as the place of occurrence of the external cause; Y99.8 Other external cause status
CPT/HCPCS: 70450; 72131; 72170; 96374; 99284; J3010

== ENCOUNTER 2021-08-21 11:13 | Emergency (ER) | payer MEDICARE, OTHER ==
[~2021-08-21] VITALS: Ht 185.4 cm; Wt 125.0 kg
[~2021-08-21 11:13] MED LIST changes: +FENT1PAT17 TP
--- NOTE | 2021-08-21 11:47 | PHYS DOC ---
Past Medical History Past Medical History: Arthritis, Constipation, COPD, Hypertension, HI, Other Additional Past Medical Histor: "I take medication for pain" Past Surgical History: Appendectomy, Cholecystectomy, Tonsillectomy Additional Past Surgical Histo: HEART STENTS Smoking Status: Current Every Day Smoker Alcohol Use: None General Adult EDM: Chief Complaint: CONSTIPATION HPI: HPI: Patient is a 70 year old male with history of constipation multiple previous abdominal surgeries who presents with recurrent constipation. Patient states he has not had a single stool in the past 5-6 weeks. Reports that he has accompanying lower abdominal pain in left and right lower quadrants. Denies nausea, vomiting. States he has good appetite. Denies fevers or chills. States he takes MiraLAX and tried an enema today and still has not had a stool so called EMS for assistance. Review of Systems: Review of Systems: Constitutional: Denies fever or chills. [] Eyes: Denies change in visual acuity. [] HENT: Denies nasal congestion or sore throat. [] Respiratory: Denies cough or shortness of breath. [] Cardiovascular: Denies chest pain or edema. [] GI: Reports abdominal pain and constipation. Denies nausea/vomiting. : Denies dysuria. [] Musculoskeletal: Denies back pain or joint pain. [] Integument: Denies rash. [] Neurologic: Denies headache, focal weakness or sensory changes. [] Endocrine: Denies polyuria or polydipsia. [] Lymphatic: Denies swollen glands. [] Psychiatric: Denies depression or anxiety. [] Heart Score: C/O Chest Pain: No Allergies: Allergies: Allergies Coded Allergies Type Severity Reaction Last Updated Verified Penicillins Allergy Intermediate 07/22/21 Yes egg Allergy Intermediate 07/22/21 Yes lansoprazole Allergy Intermediate 07/22/21 Yes tuberculin,PPD,multi-puncture Allergy Intermediate 07/22/21 Yes Physical Exam: PE: Constitutional: Poor hygiene, no acute distress. Long unkempt nails with dirt under them. HENT: Normocephalic, atraumatic Eyes: PERRLA, EOMI, conjunctiva normal, no discharge. [] Neck: Normal range of motion, no tenderness, supple, no stridor. [] Cardiovascular:Heart rate regular rhythm, no murmur [] Lungs & Thorax: Bilateral breath sounds clear to auscultation [] Abdomen: Multiple previous surgical scars on inspection. Lower abdominal tenderness to palpation in bilateral lower quadrants. No rebound. Mild guarding. Rectal: Large hard ball of stool on rectal exam. Several pieces removed with disimpaction, but remaining stool burden is apparent. Patient requested we discontinue disimpaction. 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 Extremities: No tenderness, no cyanosis, no clubbing, ROM intact, no edema. [] Neurologic: Alert and oriented X 3, normal motor function, normal sensory function, no focal deficits noted. [] Psychologic: Affect normal, judgement normal, mood normal. [] Current Patient Data: Vital Signs: Vital Signs Date Time Temp Pulse Resp B/P (MAP) Pulse Ox O2 Delivery O2 Flow Rate FiO2 08/21/21 11:15 98.0 87 18 138/58 (84) 95 Room Air 98.0 EKG: EKG: [] Radiology/Procedures: Radiology/Procedures: [] Impression: [facility] [address] [place], [place] [id number] IMAGING REPORT Signed PATIENT: OSMAR ASHLEY ACCOUNT: [id number] : 1950 LOCATION: ER AGE: 70 SEX: M EXAM STATUS: REG ER ORD. PHYSICIAN: ERICKA HUDSON MD REASON: ABD PAIN,CONSTIPATION PROCEDURE: CT ABD PELV W/ IV CONTRST ONLY EXAM: Abdomen and pelvis CT with intravenous contrast. HISTORY: Pain. Constipation. TECHNIQUE: Computed tomographic images of the abdomen and pelvis were obtained following the administration of intravenous contrast. Multiplanar reformatting was performed. *One or more of the following individualized dose reduction techniques were utilized for this examination: 1. Automated exposure control. 2. Adjustment of the mA and/or kV according to patient size. 3. Use of iterative reconstruction technique. COMPARISON: 06/18/2020. FINDINGS: Evaluation of the lower thorax demonstrates partial right middle lobe consolidation with associated air bronchograms. There is a small right pleural effusion. There is peripheral groundglass opacity throughout both lungs likely due to the combination of atelectasis and chronic interstitial changes. There is calcified atherosclerotic plaque involving the coronary arteries. There is gynecomastia. No hepatic lesion is seen. There is biliary ductal dilatation likely due to reservoir effect status post cholecystectomy. The pancreas, spleen and adrenal glands are unremarkable. There are small posterior renal cysts, the smaller of which on the right measures 1.1 cm with attenuation greater than simple fluid. This may be due to internal debris. There is no hydronephrosis. There is no appendicitis. There is no bowel obstruction. There is a large amount of stool within the colon. There is rectal wall thickening. There is mild bladder wall thickening. There is a small amount of free fluid within the dependent portions of the pelvis. There is stranding within the root of the mesentery. The aorta is normal in caliber. There are nonspecific lymph nodes. There is no convincing lymphadenopathy. There are postoperative changes within the ventral abdominal wall. There are degenerative changes throughout the spine. There is no acute osseous finding. IMPRESSION: 1. Rectal wall thickening. This may be due to acute proctitis or the sequela of chronic inflammation. No convincing rectal mass is seen. 2. Large amount of colonic stool. Correlate for constipation. 3. Partially consolidated right middle lobe infiltrate and small right pleural effusion. Follow-up to confirm resolution. 4. Small renal cysts, the smaller of which measures 1.1 cm on the right and may be a complicated cyst with internal debris. The interval stability favors benignity. Electronically signed by: Genoveva Khalil MD (08/21/2021 2:03 PM) [id number] DICTATED and SIGNED BY: GENOVEVA KHALIL MD DATE: 08/21/21 [id number] 0 Course & Med Decision Making: Course & Med Decision Making No evidentPertinent Labs and Imaging studies reviewed. (See chart for details) 70-year-old male with history of multiple abdominal surgeries presents with reported 5-6 weeks of no stool output from lower abdominal pain. On arrival is afebrile, hemodynamically stable. No acute distress on examination. Does have lower abdominal tenderness to palpation. Large hardened stool present in rectal vault, partially successful digital disimpaction was terminated on patient's request. Will attempt enema. Given his tenderness, a ge, multiple surgeries will obtain CT imaging as well. 1147 CT shows some evidence of proctitis which I assume is chronic from constipation of acute proctitis by exam. Large amount of stool still present, but patient feeling much better after enema and large bowel movement. I have advised him to increase his MiraLAX dosing. Incidental findings of renal cyst as well as right middle lobe infiltrate. I discussed these findings with the patient and he does now report cough over the past several weeks. We will treat for pneumonia with levofloxacin (penicillin allergy). I advised him that he will need to follow-up with Dr. Higuera, his PCP, to follow-up his chest and renal findings. He expresses understanding of plan. 1418 Kiko Disclaimer: Kiko Disclaimer: This electronic medical record was generated, in whole or in part, using a voice recognition dictation system. Departure Departure Impression: Primary Impression: Constipation Additional Impression: Pneumonia Disposition: HOME / SELF CARE / HOMELESS Condition: STABLE Referrals: TAPAN HIGUERA MD (PCP) Follow-up to ensure your pneumonia is improving and that you do not have an underlying lung mass after treatment with antibiotics. You also need to follow- up regarding cyst on your kidneys. Additional Instructions: Your work-up revealed a large amount of stool burden and constipation that was alleviated by an enema. You can try these at home. For now increase your MiraLAX to 1 cap twice a day, and you can increase it more up to 2 caps twice a day until you are having regular bowel movements. You will need to follow-up with Dr. Higuera to ensure that your pneumonia is improving and to discuss further bowel regimen changes depending on how you respond to the increase MiraLAX dose. You also had cyst on your kidneys that will need to be followed up by Dr. Higuera's office. If you develop severe abdominal pain, shaking chills, shortness of breath, severe chest pain, or other new/concerning symptoms please return to the emergency department for reevaluation. Scripts Levofloxacin (LEVOFLOXACIN) 750 Mg Tablet 1 TAB PO DAILY for 7 Days, #7 TAB 0 Refills Prov: ERICKA HUDSON MD 08/21/21 ERICKA HUDSON MD Aug 21, 2021 11:47
[2021-08-21 11:54] LABS: BASO # 0.1 x10^3/uL (0.0-0.2); BASO % 1 % (0-3); EOS # 0.3 x10^3/uL (0.0-0.7); EOS % 4 % (0-3); HEMATOCRIT 43.6 % (39.0-53.0); HEMOGLOBIN 14.6 g/dL (13.0-17.5); LYMPH # 1.2 x10^3/uL (1.0-4.8); LYMPH % 15 % (24-48); MEAN CORPUSCULAR HEMOGLOBIN 33 pg (25-35); MEAN CORPUSCULAR HGB CONC 33 g/dL (31-37); MEAN CORPUSCULAR VOLUME 98 fL (79-100); MONO # 0.9 x10^3/uL (0.0-1.1); MONO % 11 % (0-9); NEUT # 5.6 x10^3/uL (1.8-7.7); NEUT % 69 % (31-73); PLATELET COUNT 137 x10^3/uL (140-400); RED BLOOD COUNT 4.44 x10^6/uL (4.30-5.70); RED CELL DISTRIBUTION WIDTH 15.4 % (11.5-14.5)
[2021-08-21 11:59] LABS: CALCIUM 7.6 mg/dL (8.5-10.1); CREATININE 1.1 mg/dL (0.7-1.3); GFR 65.8; POTASSIUM 3.2 mmol/L (3.5-5.1)
[2021-08-21] MEDS ORDERED: MINERAL OIL 133 ML ENEMA. PR ONE (12:00)
[2021-08-21 12:06] LABS: ALBUMIN 1.6 g/dL (3.4-5.0); ALBUMIN/GLOBULIN RATIO 0.3 (1.0-1.7); TOTAL BILIRUBIN 1.3 mg/dL (0.2-1.0); TOTAL PROTEIN 7.3 g/dL (6.4-8.2)
[2021-08-21] MEDS ORDERED: CONTRAST GIVEN. MC PRN (12:30)
[2021-08-21] MEDS ORDERED: IOHEXOL 300 MG/ML 100ML VIAL. IV ONE (12:30)
--- NOTE | 2021-08-21 14:06 | RAD ---
EXAM: Abdomen and pelvis CT with intravenous contrast. HISTORY: Pain. Constipation. TECHNIQUE: Computed tomographic images of the abdomen and pelvis were obtained following the administ ration of intravenous contrast. Multiplanar reformatting was performed. *One or more of the following individualized dose reduction techniques were utilized for this examina tion: 1. Automated exposure control. 2. Adjustment of the mA and/or kV according to patient size. 3. Use of iterative reconstruction technique. COMPARISON: 06/18/2020. FINDINGS: Evaluation of the lower thorax demonstrates partial right middle lobe consolidation with as sociated air bronchograms. There is a small right pleural effusion. There is peripheral groundglass o pacity throughout both lungs likely due to the combination of atelectasis and chronic interstitial ch anges. There is calcified atherosclerotic plaque involving the coronary arteries. There is gynecomast ia. No hepatic lesion is seen. There is biliary ductal dilatation likely due to reservoir effect status p ost cholecystectomy. The pancreas, spleen and adrenal glands are unremarkable. There are small heel burnisher ior renal cysts, the smaller of which on the right measures 1.1 cm with attenuation greater than simp le fluid. This may be due to internal debris. There is no hydronephrosis. There is no appendicitis. There is no bowel obstruction. There is a large amount of stool within the colon. There is rectal wall thickening. There is mild bladder wall thickening. There is a small amoun t of free fluid within the dependent portions of the pelvis. There is stranding within the root of th e mesentery. The aorta is normal in caliber. There are nonspecific lymph nodes. There is no convincin g lymphadenopathy. There are postoperative changes within the ventral abdominal wall. There are degen erative changes throughout the spine. There is no acute osseous finding. IMPRESSION: 1. Rectal wall thickening. This may be due to acute proctitis or the sequela of chronic inflammation. No convincing rectal mass is seen. 2. Large amount of colonic stool. Correlate for constipation. 3. Partially consolidated right middle lobe infiltrate and small right pleural effusion. Follow-up to confirm resolution. 4. Small renal cysts, the smaller of which measures 1.1 cm on the right and may be a complicated cyst with internal debris. The interval stability favors benignity. Electronically signed by: Genoveva Leggett MD (08/21/2021 2:03 PM) [id number]
[2021-08-21] MEDS ORDERED: LEVO750T5 PO (14:21)
[2021-08-21 14:35] VITALS: BP 134/62
== END 2021-08-21 14:35 | disposition home or self-care (01) ==
LOC: ER 11:13
DX: K59.00 Constipation, unspecified (principal); J18.9 Pneumonia, unspecified organism; J44.9 Chronic obstructive pulmonary disease, unspecified; I10 Essential (primary) hypertension; F17.200 Nicotine dependence, unspecified, uncomplicated; I25.2 Old myocardial infarction; Z95.5 Presence of coronary angioplasty implant and graft; Z90.89 Acquired absence of other organs; Z88.0 Allergy status to penicillin; Z91.012 Allergy to eggs; Z88.8 Allergy status to other drugs, medicaments and biological substances; Z88.7 Allergy status to serum and vaccine
CPT/HCPCS: 36415; 74177; 80053; 85025; 99285; Q9967